=== PATIENT | male | born 1990 | race Caucasian/White ===

== ENCOUNTER 2019-05-24 01:50 | Emergency (ER) | payer MEDICAID ==
[~2019-05-24] VITALS: Ht 167.6 cm; Wt 78.0 kg
[2019-05-24] MEDS ORDERED: KETOROLAC 30MG/ML VIAL IV STA (04:47)
[2019-05-24] MEDS ORDERED: ONDANSETRON HCL 4MG/2ML INJ IV STA (04:47)
[2019-05-24] MEDS ORDERED: FAMOTIDINE 20MG/2ML VIAL IV STA (04:47)
[2019-05-24] MEDS ORDERED: SODIUM CHLORIDE 0.9% 1,000 ML IV ONE (04:47)
[2019-05-24 05:24] LABS: BASOPHILS % 0.6 % (0.0-2.0); EOSINOPHILS % 1.6 % (0.0-5.0); HEMATOCRIT. 41.9 % (42.0-52.0); HEMOGLOBIN. 14.9 g/dL (14.0-18.0); LYMPHOCYTES % 24.1 % (20.0-50.0); MEAN CORPUSCULAR HEMOGLOBIN 29.5 pg (28.0-32.0); MEAN PLATELET VOLUME 7.7 fl (7.4-10.4); MONOCYTES % 9.7 % (2.0-8.0); PLATELET 193 x1000/uL (130-400); RED BLOOD CELL COUNT 5.05 mill/uL (4.7-6.1); RED CELL DISTRIBUTION WIDTH 13.3 % (11.6-14.6)
[2019-05-24 05:30] LABS: PROTHROMBIN TIME 10.7 sec (9.6-11.0)
[2019-05-24 05:37] LABS: CHLORIDE 105 mEq/L (98-107)
[2019-05-24 05:42] LABS: ETHANOL BLOOD < 10 mg/dL
[2019-05-24] MEDS ORDERED: ACETAMINOPHEN WITH CODEINE 300/30MG TABLET PO ONE (06:45)
[2019-05-24 09:08] LABS: CLARITY URINE CLEAR (CLEAR); COLOR URINE YELLOW (YELLOW); KETONES URINE NEGATIVE (NEGATIVE); LEUKOCYTE ESTERASE URINE NEGATIVE (NEGATIVE); NITRITE URINE NEGATIVE (NEGATIVE); OCCULT BLOOD URINE NEGATIVE (NEGATIVE); PH URINE 5.5 (4.5-8.0); PROTEIN URINE NEGATIVE (NEGATIVE); SPECIFIC GRAVITY URINE 1.019 (1.005-1.030); UROBILINOGEN URINE 0.2 E.U./dL (0.2-1.0)
[2019-05-24 09:58] VITALS: BP 110/60
== END 2019-05-24 10:07 | disposition home or self-care (01) ==
LOC: ER 01:50
DX: R07.89 Other chest pain (principal); Z90.49 Acquired absence of other specified parts of digestive tract
CPT/HCPCS: 36415; 71045; 80053; 80320; 81003; 83690; 85025; 85610; 93005; 96374; 96375; 99284; J1885; J2405; J3490; J7030; G0480

== ENCOUNTER 2019-05-26 23:29 | Emergency (ER) | payer MEDICAID ==
[~2019-05-26] VITALS: Ht 167.6 cm; Wt 77.0 kg
[2019-05-26 23:35] VITALS: BP 115/66
== END 2019-05-27 05:37 | disposition left against medical advice (07) ==
LOC: ER 23:29
DX: Z53.21 Procedure and treatment not carried out due to patient leaving prior to being seen by health care provider (principal)
CPT/HCPCS: 93005

== ENCOUNTER 2019-05-28 00:43 | Emergency (ER) | payer MEDICAID ==
[~2019-05-28] VITALS: Ht 167.6 cm; Wt 77.0 kg
[2019-05-28] MEDS ORDERED: HYDROCODONE/ACETAMINOPHEN 5/325MG TABLET PO ONE (04:00)
[2019-05-28 04:03] VITALS: BP 112/81
== END 2019-05-28 04:04 | disposition home or self-care (01) ==
LOC: ER 00:43
DX: K21.9 Gastro-esophageal reflux disease without esophagitis (principal); Z90.49 Acquired absence of other specified parts of digestive tract
CPT/HCPCS: 93005; 99283